=== PATIENT | female | born 1945 | race Caucasian/White ===

== ENCOUNTER 2022-12-03 17:29 | Emergency (ER) | payer MEDICARE, MEDICAID ==
[~2022-12-03 17:29] MED LIST: ALPR-624 PO; ARIP5TAB49 PO; BUPR-317 PO; DULO-31 PO; GABA400C PO; HYDR-4383 PO; KEP500T PO; ZOLP5TAB2 PO; epiNEPHrine 0.1mg/ml 10ml syringe ONE
--- NOTE | 2022-12-03 18:39 | NUR ---
RN ATTEMPTED TO CALL [facility] OFFICE AND THEY ARE CLOSED. PER CHARGE [facility] RN LEAVE A VM AND THEY WILL CALL BACK. RN LEFT VM.
== END 2022-12-03 20:03 ==
LOC: ER 17:30
DX: I46.9 Cardiac arrest, cause unspecified (principal); A41.9 Sepsis, unspecified organism; F32.A Depression, unspecified
CPT/HCPCS: 92950; 99285; J0171